=== PATIENT | male | born 1980 | race Caucasian/White ===

== ENCOUNTER 2016-09-26 08:53 | Emergency (ER) | payer OTHER ==
[~2016-09-26] VITALS: Ht 180.3 cm; Wt 90.7 kg
[2016-09-26 09:18] LABS: BASO % 1 % (0-3); EOS % 1 % (0-3); HEMATOCRIT 47.2 % (39.0-53.0); HEMOGLOBIN 16.3 g/dL (13.0-17.5); LYMPH # 1.8 x10^3/uL (1.0-4.8); LYMPH % 31 % (24-48); MEAN CORPUSCULAR HEMOGLOBIN 31 pg (25-35); MEAN CORPUSCULAR HGB CONC 35 g/dL (31-37); MEAN CORPUSCULAR VOLUME 89 fL (79-100); MONO # 0.4 x10^3/uL (0.0-1.1); MONO % 8 % (0-9); NEUT # 3.5 x10^3uL (1.8-7.7); NEUT % 60 % (31-73); PLATELET COUNT 160 x10^3/uL (140-400); RED BLOOD COUNT 5.33 x10^6/uL (4.30-5.70); RED CELL DISTRIBUTION WIDTH 13.1 % (11.5-14.5); WHITE BLOOD COUNT 5.8 x10^3/uL (4.0-11.0)
[2016-09-26] MEDS: ASPIRIN 81 MG TAB.CHEW PO ONE (09:25)
[2016-09-26] MEDS: NITROGLYCERIN SUBLINGUAL 0.4 MG BOTTLE OF 25. SL PRN (09:26)
--- NOTE | 2016-09-26 09:26 | PHYS DOC ---
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 Pt states for past 3-4 days he's had anterior chest "pressure" described as moderate, no exacerbating/relieving factors, no relation to position or PO intake. No sob/diaphoresis/n/v/arm or neck sx/lightheadedness/palpitations. Similar symptoms in past, was diagnosed anxiety. Was seen on Post at [facility] earlier today, advised ED. Pt refused ambulance transfer and drove himself here. No ASA/NTG/prearrival treatment. PMH: HTN Timing/Duration: constant (3-4 days) Severity: moderate Modifying Factors: improves with other Associated Symptoms: chest pain Allergies: Coded Allergies: No Known Drug Allergies (Unverified , 09/26/16) Past Medical History Medical History: hypertension Surgical History: noncontributory Psychosocial History: anxiety Social History Smoker: non-smoker Alcohol: none Drugs: none Review of Systems Constitutional: denies chills, denies diaphoresis, denies fever, malaise Respiratory: denies cough, denies shortness of breath, denies wheezing Cardiovascular: chest paindenies edema, denies palpitations, denies syncope Gastrointestinal: denies abdominal pain, denies nausea, denies vomiting Musculoskeletal: denies back pain, denies joint swelling, denies neck pain Psychiatric/Neurological: denies headache, denies numbness, denies paresthesia Hematologic/Lymphatic: denies blood clots, denies easy bleeding, denies easy bruising Physical Exam General Appearance: WD/WN, no apparent distress Eyes: bilateral eye EOMI, bilateral eye PERRL, bilateral eye normal inspection Ear, Nose, Throat: hearing grossly normal, normal ENT inspection, normal pharynx Neck: non-tender, supple Respiratory: normal breath sounds, no respiratory distress Cardiovascular: normal peripheral pulses, regular rate, rhythm Gastrointestinal: non tender, soft Back: no CVA tenderness, no vertebral tenderness Extremities: normal range of motion, non-tender, normal inspection Neurologic/Psychiatric: corsetier II-XII nml as tested, no motor/sensory deficits, alert, normal mood/affect, oriented x 3 Skin: normal color, warm/dry Orders, Labs, Meds EKG: NSR 65 bpm no STEMI PATIENT: ZHAO ALBARRAN ACCOUNT: [id number] : 1980 LOCATION: ER AGE: 36 SEX: M EXAM STATUS: REG ER ORD. PHYSICIAN: PAUL WASHBURN DO REASON: cp PROCEDURE: PORTABLE CHEST 1V Portable chest, 09/26/2016: History: Chest pain The heart is at the upper limits of normal in size. The pulmonary vascularity is normal. No pulmonary infiltrates are seen. There is no evidence of pleural fluid. IMPRESSION: No acute cardiopulmonary abnormality is detected. DICTATED AND SIGNED BY: DUC ZAMORANO MD DATE: 09/26/16922 CC: MARTA ROSS DO; PAUL WASHBURN DO ~ Reassuring ED workup. I discussed xanax PO, cardiology/psychiatry follow up. Pt expressed agreement/understanding. Departure Time of Disposition: 10:07 Disposition: 01 HOME, SELF-CARE Diagnosis: chest pain, anxiety Condition: GOOD Patient Instructions: Anxiety and Panic Attacks, [id number], Chest Pain ( Nonspecific), [id number] Additional Instructions: Work excuse thru tomorrow. Rest, no strenuous activity. Follow up at [facility] tomorrow for recheck and possible cardiology/psychiatry referrals as discussed. Rx: xanax 0.25mg #10 Return to ED with new or changing symptoms. PAUL WASHBURN DO Sep 26, 2016 09:26
[2016-09-26 09:34] LABS: HEMOGLOBIN ISTAT 15.6 gm/dL
[2016-09-26 09:41] LABS: CREATINE KINASE 180 U/L (39-308)
[2016-09-26 10:00] VITALS: BP 145/75
[2016-09-26] MEDS ORDERED: ALPR0.25 PO (10:09)
--- NOTE | 2016-09-26 11:46 | EKG ---
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
== END 2016-09-26 10:35 | disposition home or self-care (01) ==
LOC: ER 08:53
DX: R07.89 Other chest pain (principal); F41.9 Anxiety disorder, unspecified; I10 Essential (primary) hypertension
CPT/HCPCS: 36415; 71010; 80047; 82550; 83880; 84484; 85027; 93005; 99285-25